=== PATIENT | male | born 1970 | race Caucasian/White ===

== ENCOUNTER 2017-10-04 08:37 | Outpatient (CLI) | payer OTHER ==
--- NOTE | 2017-10-04 13:18 | MRI Report ---
EXAM: MRI BRAIN WITHOUT CONTRAST EXAM DATE: 10/04/2017 09:56 AM. CLINICAL HISTORY: Peripheral vascular disease COMPARISON: None. TECHNIQUE: Multiplanar, multisequence T1-weighted and fluid-sensitive MR sequences of the brain were performed. Sequences optimized for routine evaluation. Other: None. IV Contrast: None. FINDINGS: Brain Volume: Normal for age. Parenchyma/Dura: No mass, acute infarct or hemorrhage. Scattered FLAIR hyperintense periventricular a nd deep white matter lesions within cerebral hemispheres bilaterally. No parenchymal foci susceptibility artifact. Ventricles/Cisterns: No hydrocephalus. No abnormal extra-axial fluid collection or hemorrhage. Cavum septum pellucidum et vergae, a benign anatomic variant. Orbits: Symmetric and unremarkable. Sella Turcica: The pituitary gland, cavernous sinuses, suprasellar cistern and optic chiasm are unrem arkable. IAC: Symmetric and unremarkable. Vasculature: Normal signal flow void is seen in the major arterial structures at the skull base. Sinuses: Extensive mucosal thickening final maxillary sinuses. The remaining paranasal sinuses are cl ear. Bones: No focal pathologic appearing marrow signal changes. Other: None. IMPRESSION: 1. No MRI evidence of acute intracranial abnormality. Specifically, no evidence of acute or subacute infarct, acute intracranial hemorrhage, mass, midline shift, or hydrocephalus. 2. Scattered periventricular deep white matter T2/FLAIR hyperintensities, nonspecific, and can be see n with the entire gamut of white matter conditions, including migraine headaches and as sequela of ch ronic microangiopathy. [facility] Referring Provider Line: [phone] SITE ID: [id number]
--- NOTE | 2017-10-04 16:23 | MRI Report ---
EXAM: MRI CERVICAL SPINE WITHOUT CONTRAST EXAM DATE: 10/04/2017 09:56 AM. CLINICAL HISTORY: Other specified peripheral vascular diseases. Tingling and electric shocks down arm s into fingers. Fingers turn purple. COMPARISONS: None. TECHNIQUE: Multiplanar, multisequence T1-weighted and fluid-sensitive sequences of the cervical spine without contrast. Other: None. FINDINGS: Neurologic Structures: The visualized posterior fossa structures are unremarkable. No signal abnormal ity in the visualized spinal cord. Alignment: There is some straightening of the normal cervical lordotic curvature. Bone Marrow: Benign-appearing hemangioma at C4. No fractures. No erosive or destructive changes. Interspace Levels/Facets: C1-C2: Unremarkable. C2-C3: Unremarkable. C3-C4: Mild disk dehydration. No bulge or protrusion. C4-C5: Annular tear, slight flattening of the thecal sac without deformity of the cord. No central or foraminal stenosis. C5-C6: Disk bulge, disk dehydration. Mild central stenosis. No foraminal stenosis. Prominent facets. C6-C7: Disk/osteophyte complex at this level. Some indentation of the thecal sac, no stenosis. Promin ent facets. C7-T1: Unremarkable. Musculature: Mild fatty atrophy of the multifidus muscle is seen. Other: The paravertebral and prevertebral soft tissues are normal. IMPRESSION: 1. Some straightening of the normal cervical lordotic curvature is seen. Benign-appearing hemangioma at C4. No fractures or erosive or destructive changes. 2. C2-C3 is normal. 3. C3-C4 shows mild disk dehydration, no bulge or protrusion. No stenosis. 4. C4-C5 shows an annular tear with slight flattening of the ventral thecal sac. No central or forami nal stenosis. 5. C5-C6 shows a broad-based disk bulge, disk dehydration, mild central stenosis. No foraminal stenos is. 6. C6-C7 shows disk/osteophyte complex, some indentation of the thecal sac. Prominent facets. 7. C7-T1 is unremarkable. [facility] Referring Provider Line: [phone] SITE ID: [id number]
== END 2017-10-04 08:38 | disposition home or self-care (01) ==
LOC: DI 08:37
PROVIDERS: ATTEND Internal Medicine
DX: R90.89 Other abnormal findings on diagnostic imaging of central nervous system (principal); D18.09 Hemangioma of other sites; M51.35 Other intervertebral disc degeneration, thoracolumbar region; M50.322 Other cervical disc degeneration at C5-C6 level; M48.02 Spinal stenosis, cervical region
CPT/HCPCS: 70551; 72141